=== PATIENT | male | born 1970 | race Caucasian/White ===

== ENCOUNTER 2016-05-24 19:24 | Emergency (ER) | payer MEDICAID ==
[~2016-05-24] VITALS: Ht 167.6 cm; Wt 65.8 kg
[~2016-05-24 19:24] MED LIST: ELVI1TAB3 PO
[2016-05-24] MEDS ORDERED: IV NORMAL SALINE 1000ML BAG 1,000 ML IV SCH (20:05)
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
[2016-05-24] MEDS ORDERED: LIDO:MAALOX:DONNATAL 1:1:1 15 ML SINGLE DOSE SWSW ONE (20:15)
[2016-05-24] MEDS ORDERED: ONDANSETRON PF 4 MG/2 ML VIAL. IV ONE (20:15)
[2016-05-24] MEDS ORDERED: FAMOTIDINE 20 MG/2 ML VIAL IVP ONE (20:15)
[2016-05-24 20:31] LABS: BASO % 1 % (0-3); EOS % 2 % (0-3); HEMATOCRIT 45.3 % (39.0-53.0); HEMOGLOBIN 14.9 g/dL (13.0-17.5); LYMPH # 2.3 x10^3/uL (1.0-4.8); LYMPH % 35 % (24-48); MEAN CORPUSCULAR HEMOGLOBIN 30 pg (25-35); MEAN CORPUSCULAR HGB CONC 33 g/dL (31-37); MEAN CORPUSCULAR VOLUME 90 fL (79-100); MONO % 12 % (0-9); NEUT % 50 % (31-73); PLATELET COUNT 220 x10^3/uL (140-400); RED BLOOD COUNT 5.01 x10^6/uL (4.30-5.70); WHITE BLOOD COUNT 6.6 x10^3/uL (4.0-11.0)
[2016-05-24 20:41] LABS: CALCIUM 9.2 mg/dL (8.5-10.1); CREATININE 0.9 mg/dL (0.7-1.3); GFR 90.1; POTASSIUM 3.8 mmol/L (3.5-5.1)
[2016-05-24 20:55] LABS: ALBUMIN 3.5 g/dL (3.4-5.0); ALBUMIN/GLOBULIN RATIO 0.7 (1.0-1.7); TOTAL BILIRUBIN 0.4 mg/dL (0.2-1.0); TOTAL PROTEIN 8.4 g/dL (6.4-8.2)
[2016-05-24] MEDS ORDERED: FAMO20TA5 PO (21:04)
[2016-05-24 21:39] VITALS: BP 144/88
--- NOTE | 2016-05-25 06:45 | EKG ---
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
== END 2016-05-24 21:47 | disposition home or self-care (01) ==
LOC: ER 19:24
DX: K52.9 Noninfective gastroenteritis and colitis, unspecified (principal)
CPT/HCPCS: 36415; 80053; 83690; 85027; 93005; 99285; J2405; J7030; S0028; 96361; 96374; 96375

== ENCOUNTER 2016-06-13 18:03 | Emergency (ER) | payer MEDICAID ==
[~2016-06-13] VITALS: Ht 167.6 cm; Wt 72.6 kg
[~2016-06-13 18:03] MED LIST changes: +FAMO20TA5 PO
[2016-06-13] MEDS ORDERED: IV NORMAL SALINE 1000ML BAG 1,000 ML IV SCH (19:30)
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
[2016-06-13 20:05] LABS: BASO % 1 % (0-3); EOS % 2 % (0-3); HEMATOCRIT 44.6 % (39.0-53.0); HEMOGLOBIN 15.1 g/dL (13.0-17.5); LYMPH % 33 % (24-48); MEAN CORPUSCULAR HEMOGLOBIN 30 pg (25-35); MEAN CORPUSCULAR HGB CONC 34 g/dL (31-37); MEAN CORPUSCULAR VOLUME 88 fL (79-100); MONO % 14 % (0-9); NEUT % 51 % (31-73); PLATELET COUNT 168 x10^3/uL (140-400); RED BLOOD COUNT 5.05 x10^6/uL (4.30-5.70); RED CELL DISTRIBUTION WIDTH 14.2 % (11.5-14.5); WHITE BLOOD COUNT 6.1 x10^3/uL (4.0-11.0)
[2016-06-13 20:09] LABS: BILIRUBIN,URINE NEGATIVE (NEG); GLUCOSE,URINE NEGATIVE (NEG); NITRITE,URINE NEGATIVE (NEG); PROTEIN,URINE NEGATIVE (NEG-TRACE); UROBILINOGEN,URINE 0.2 mg/dL (0.2 mg/dL)
[2016-06-13] MEDS ORDERED: ONDANSETRON PF 4 MG/2 ML VIAL. IV ONE (20:15)
[2016-06-13] MEDS ORDERED: ACETAMINOPHEN 500 MG TABLET PO ONE (20:15)
[2016-06-13 20:17] LABS: BACTERIA,URINE 0 /HPF (0-FEW); RBC,URINE 0 /HPF (0-2); SQUAMOUS EPITHELIAL CELL,UR OCC /LPF; WBC,URINE 0 /HPF (0-4)
[2016-06-13 20:18] LABS: CALCIUM 9.1 mg/dL (8.5-10.1); CREATININE 0.9 mg/dL (0.7-1.3); GFR 90.1; POTASSIUM 3.9 mmol/L (3.5-5.1)
[2016-06-13 20:24] LABS: ALBUMIN 3.4 g/dL (3.4-5.0); ALBUMIN/GLOBULIN RATIO 0.7 (1.0-1.7); TOTAL BILIRUBIN 0.4 mg/dL (0.2-1.0)
[2016-06-13 21:00] VITALS: BP 158/90
[2016-06-13] MEDS ORDERED: PROAIR HFA8.5 GM INH (21:13)
[2016-06-13] MEDS ORDERED: PRED20TA PO (21:13)
--- NOTE | 2016-06-14 08:11 | RAD ---
Chest, 2 views, 06/13/2016: History: Cough and fever Comparison is made to a study from 05/20/2016. The heart size and pulmonary vascularity are normal. There is an unchanged linear parenchymal opacity in the right middle lobe compatible with scarring versus chronic or recurrent atelectasis. The lungs are otherwise clear. There is no evidence of pleural fluid. Right clavicular deformity is again noted. IMPRESSION: 1. Mild linear scarring or recurrent atelectasis in the right middle lobe. 2. No new cardiopulmonary abnormality is detected.
== END 2016-06-13 21:30 | disposition home or self-care (01) ==
LOC: ER 18:03
DX: B34.9 Viral infection, unspecified (principal); J02.9 Acute pharyngitis, unspecified; R10.32 Left lower quadrant pain; F17.200 Nicotine dependence, unspecified, uncomplicated; Z21 Asymptomatic human immunodeficiency virus [HIV] infection status; Z87.820 Personal history of traumatic brain injury
CPT/HCPCS: 36415; 71020; 80053; 81001; 83690; 85027; 96361; 96374; 99285; J2405; J7030